=== PATIENT | female | born 1960 | race Caucasian/White ===

== ENCOUNTER 2022-04-11 10:00 | Inpatient (IN) ==
[2022-04-18] MEDS ORDERED: Ertapenem 1 GM in NS 0.9% 50 ML BAG IVPB SCH
[2022-04-18] MEDS ORDERED: Lactated Ringers 1000 ml BAG 1,000 ML IV SCH (06:00)
[2022-04-18] MEDS ORDERED: Buffered Lidocaine 1% SYRIN 1 ml INTRADERM ONE (06:00)
[2022-04-18] MEDS ORDERED: fentaNYL 100 mcg/2 ml 50 MCG/ML VIAL ONE (10:41)
[2022-04-18] MEDS ORDERED: Propofol 10 MG/ML 20 ML BTL ONE (10:41)
[2022-04-18] MEDS ORDERED: Ondansetron 4 mg VIAL 2 MG/ML 2 ml VIAL ONE ×2 (10:41→19:20)
[2022-04-18] MEDS ORDERED: Lidocaine 2% PF 5 ML VIAL ONE (10:41)
[2022-04-18] MEDS ORDERED: Rocuronium 50 mg VIAL 10 mg/ml 5 ml VIAL (50 mg) ONE ×2 (10:41→12:46)
[2022-04-18] MEDS ORDERED: Dexamethasone IV 4 MG/ML VIAL 1 ml VIAL ONE (10:41)
[2022-04-18 11:09] LABS: Hematocrit 48 % (35-47); Mean Corpuscular HGB Conc 33 g/dL (31-36); Mean Corpuscular Hemoglobin 31 pg (27-31); Mean Corpuscular Volume 93 fL (80-97); Mean Platelet Volume 6.7 fL (7.4-10.4); Platelet Count 269 10^3/uL (150-450); Red Blood Count 5.17 10^6 /uL (3.70-4.87); Red Cell Distribution Width 15 % (10-15)
[2022-04-18] MEDS ORDERED: Midazolam 2 mg/2 ml VIAL 1 mg/ml 2 ml VIAL (2 mg) ONE (11:41)
[2022-04-18 11:47] LABS: Calcium 10.5 mg/dL (8.6-10.3); Potassium 4.9 mmol/L (3.5-5.0); eGFR CKD-EPI 79.7 (>60)
[2022-04-18] MEDS ORDERED: Phenylephrine IV 10 MG/ML 1 ml VIAL ONE (12:28)
[2022-04-18] MEDS ORDERED: Phenylephrine 40 mcg/mL 10mL (400mcg) SYRINGE ONE (12:29)
[2022-04-18] MEDS ORDERED: Bupivacaine 0.25% EPI 200,000 30 ML SDV ONE (12:53)
[2022-04-18] MEDS ORDERED: HYDROmorphone 0.5 MG/0.5 ML SYRINGE ONE ×2 (13:02→16:13)
[2022-04-18] MEDS ORDERED: fentaNYL 100 mcg/2 ml 50 MCG/ML VIAL IV PRN (16:05)
[2022-04-18] MEDS ORDERED: Naloxone 0.4 mg VIAL 0.4 mg/ml 1 ml VIAL IV PRN (16:05)
[2022-04-18] MEDS ORDERED: Ondansetron 4 mg VIAL 2 MG/ML 2 ml VIAL IV PRN ×2 (16:05→18:08)
[2022-04-18] MEDS ORDERED: Sevoflurane BOTTLE ONE (17:21)
[2022-04-18] MEDS ORDERED: Acetaminophen IV 1 GM/100ML 1,000 MG/100 ML BAG IV ONE (19:42)
[2022-04-18] MEDS: Acetaminophen IV 1 GM/100ML 1,000 MG/100 ML BAG IV SCH (19:44)
[2022-04-18] MEDS ORDERED: HYDROmorphone 1 MG/1 ML SYRINGE ONE (20:12)
[2022-04-18] MEDS: HYDROmorphone 1 MG/1 ML SYRINGE IV SLOW PU PRN (20:13)
[2022-04-18] MEDS: NS 0.9% 1000 ml BAG 1,000 ML IV SCH (22:16)
[2022-04-19] MEDS: HYDROmorphone 1 MG/1 ML SYRINGE IV SLOW PU PRN (01:04)
[2022-04-19] MEDS: NS 0.9% 1000 ml BAG 1,000 ML IV SCH ×2 (05:23→14:50)
[2022-04-19] MEDS: Acetaminophen IV 1 GM/100ML 1,000 MG/100 ML BAG IV SCH ×3 (05:54→22:01)
[2022-04-19] MEDS: Heparin 5000 UNITS/ML 1 mL VIAL SUBCUT SCH ×3 (05:55→22:02)
[2022-04-19 06:17] LABS: ABS Lymphocytes 1.7 10^3/ul (1.0-4.8); ABS Monocytes 0.9 10^3/ul (0-0.8); ABS Neutrophils 7.4 10^3/ul (1.5-7.7); Hematocrit 40 % (35-47); Hemoglobin 13.3 g/dL (12.0-16.0); Lymphocyte % 16.6 %; Mean Corpuscular HGB Conc 33 g/dL (31-36); Mean Corpuscular Hemoglobin 31 pg (27-31); Mean Corpuscular Volume 93 fL (80-97); Mean Platelet Volume 6.7 fL (7.4-10.4); Platelet Count 194 10^3/uL (150-450); Red Blood Count 4.33 10^6 /uL (3.70-4.87); Red Cell Distribution Width 15 % (10-15)
[2022-04-19 07:02] LABS: Calcium 8.8 mg/dL (8.6-10.3); Magnesium 1.9 mg/dL (1.9-2.7); Potassium 4.6 mmol/L (3.5-5.0); eGFR CKD-EPI 74.3 (>60)
[2022-04-19] MEDS: Morphine 2 MG/ML SYRINGE IV PRN (10:40)
[2022-04-20] MEDS: NS 0.9% 1000 ml BAG 1,000 ML IV SCH (04:23)
[2022-04-20] MEDS: Heparin 5000 UNITS/ML 1 mL VIAL SUBCUT SCH ×3 (06:07→22:00)
[2022-04-20] MEDS: Acetaminophen IV 1 GM/100ML 1,000 MG/100 ML BAG IV SCH ×3 (08:10→21:41)
[2022-04-20] MEDS: Morphine 2 MG/ML SYRINGE IV PRN (11:29)
[2022-04-20] MEDS: D5W 1/2 NS 1000 ml BAG 1,000 ML IV SCH (11:30)
[2022-04-21] MEDS: D5W 1/2 NS 1000 ml BAG 1,000 ML IV SCH (01:10)
[2022-04-21] MEDS: Acetaminophen IV 1 GM/100ML 1,000 MG/100 ML BAG IV SCH (06:03)
[2022-04-21] MEDS: Heparin 5000 UNITS/ML 1 mL VIAL SUBCUT SCH ×2 (06:05→14:00)
[2022-04-21] MEDS ORDERED: oxyCODONE/Acetamin 5/325 mg TAB PO PRN (09:01)
[2022-04-21 11:14] VITALS: BP 155/75
== END 2022-04-21 15:05 | disposition home or self-care (01) | DRG 221 ==
LOC: AA 04-18 10:43 → SSU 04-18 22:00
PROVIDERS: ADMIT Surgery; ATTEND Surgery